=== PATIENT | female | born 1990 | race American Indian/Alaskan Native ===

== ENCOUNTER 2020-06-29 08:39 | Observation (INO) | payer OTHER ==
[2020-06-29 09:54] LABS: Hematocrit 32.5 % (30.3-42.9); Hemoglobin 10.3 gm/dl (10.1-14.3); Mean Corpuscular HGB Conc 32 % (30-34); Mean Corpuscular Volume 73 fl (79-97); Platelet Count 400 K/mm3 (140-440); Red Blood Count 4.48 M/mm3 (3.65-5.03); Red Cell Distribution Width 18.6 % (13.2-15.2)
[2020-06-29 10:15] LABS: Alanine Aminotransferase 8 units/L (7-56); BUN/Creatinine Ratio 9; Blood Urea Nitrogen 7 mg/dL (7-17); Calcium 9.3 mg/dL (8.4-10.2); Hemolysis Index 0
[2020-06-29 10:37] LABS: Bilirubin,Urine NEG (Negative); Blood,Urine SM (Negative); Color,Urine Yellow (Yellow); Mucus,Urine FEW /HPF; Protein,Urine <15 mg/dL mg/dL (Negative); Urobilinogen,Urine < 2.0 mg/dL (<2.0)
[2020-06-29 10:45] LABS: Amphetamine Screen,Urine Negative; Benzodiazepines Screen,Urine Negative; Cocaine Screen,Urine Negative; Methadone Screen,Urine Negative; Opiate Screen,Urine Negative
[2020-06-29 10:50] LABS: HCG Qualitative,Urine Negative (Negative)
--- NOTE | 2020-06-29 10:54 | XRay Report ---
CHEST PA AND LATERAL VIEWS INDICATION: Chest Pain. COMPARISON: None FINDINGS: Support devices: None Heart: Normal Lungs/Pleura: No acute pulmonary or pleural findings. IMPRESSION: 1. No active disease. Signer Name: Alvaro Marino MD Signed: 06/29/2020 10:50 AM Workstation Name: [id number]
--- NOTE | 2020-06-29 11:10 | Event Note ---
ED Screening Note Date of service: 06/29/20 Time: 11:08 ED Screening Note: 30-year-old female patient with history of oral contraceptive use presents to the emergency department with complaints of pleuritic right-sided chest pain starting 2 days ago. No recent travel. No recent surgery. No family history of venous thromboembolism. test is negative. No history of cancer. No known family history of early heart disease. Chest pain was preceded by the sensation of "a Rene horse" in both of her legs, which has since resolved spontaneously. BP 170/112 in triage General: Awake, appropriately interactive, no acute distress. Neck: Supple. Full range of motion intact. Cardiovascular: Normal peripheral perfusion. Pulmonary: No respiratory distress. Patient is speaking normally without use of accessory muscles. Skin: No apparent rashes or lesions. Neurological: No facial asymmetry. Speech is clear. Follows commands. Patient is alert and oriented. Musculoskeletal: Moves all four extremities spontaneously with normal range of motion. Psych: Cooperative. Appropriate mood and affect. Patient is not an appropriate candidate for PE rule-out using PERC criteria due to OCP's; D-Dimer obtained in triage. I have greeted and performed a focused rapid initial assessment of this patient. A comprehensive ED assessment and evaluation of the patient, analysis of all test results, and completion of the medical decision-making process will be conducted by additional ED providers. This initial assessment/diagnostic orders/clinical plan/treatment(s) is/are subject to change based on patients health status, clinical progression and re-assessment. Further treatment and workup at subsequent clinical provider's discretion. Patient/guardian urged not to elope from the ED as their condition may be serious if not clinically assessed and managed.
[2020-06-29 11:11] LABS: Cannabinoid Screen,Urine PRESUMPTIVE POSITIVE
[2020-06-29 11:14] LABS: Anisocytosis 1+; Platelet Estimate Consistent w Auto; Total Cells Counted 100
--- NOTE | 2020-06-29 12:06 | Emergency Department Report ---
ED Chest Pain HPI - General Chief Complaint: Chest Pain Stated Complaint: CHEST PAIN/SHARP PAIN RT SIDE Time Seen by Provider: 06/29/20 11:22 Source: patient Mode of arrival: Ambulatory Limitations: No Limitations - History of Present Illness Initial Comments: This is a 30-year-old female who complains of right-sided chest pain of 2 days duration. The onset was relatively acute and the pain has been pleuritic. She does complain of some difficulty in breathing and occasional cough but no hemoptysis. She states that she has had "charley horses in both feet" since yesterday. She does not complain of calf or thigh pain though. She states the pain began in her right posterior chest 2 days ago and seemed to involve more of the anterior part of her chest by yesterday. Patient does take the control pill. She does not have a personal history nor family history of VTE. She has not traveled since March when she took a 2-hour trip she states. MD Complaint: chest pain -: days(s) Onset: during rest Pain Location: right chest Pain Radiation: none Severity: moderate Quality: tightness Consistency: constant Improves With: nothing Worsens With: inspiration re: denies: nausea, vomting, diaphoresis Other Symptoms: denies: cough (Very occasional), fever, syncope Treatments Prior to Arrival: none Aspirin use within the Past 7 Days: (0) No - Related Data Allergies Allergy/AdvReac Type Severity Reaction Status Date / Time Penicillins Allergy Swelling Verified 06/29/20 08:48 Heart Score - HEART Score History: Slightly suspicious EKG: Normal Age: < 45 Risk factors: No known risk factors Troponin: < normal limit HEART Score: 0 - EKG Read Time Time EKG Completed: 09:01 EKG Read Time: 09:04 - Critical Actions Critical Actions: 0-3 pts:0.9-1.7%risk of adverse cardiac event.Candidate for discharge ED Review of Systems ROS: Stated complaint: CHEST PAIN/SHARP PAIN RT SIDE Other details as noted in HPI Constitutional: denies: chills, fever Eyes: denies: eye pain, eye discharge, vision change ENT: denies: ear pain, throat pain Respiratory: shortness of breath. denies: cough, wheezing Cardiovascular: chest pain. denies: palpitations Endocrine: no symptoms reported Gastrointestinal: denies: abdominal pain, nausea, diarrhea Genitourinary: denies: urgency, dysuria, discharge Musculoskeletal: denies: back pain, joint swelling, arthralgia Skin: denies: rash, lesions Neurological: denies: headache, weakness, paresthesias Psychiatric: denies: anxiety, depression Hematological/Lymphatic: denies: easy bleeding, easy bruising ED Past Medical Hx - Past Medical History Previous Medical History?: No - Surgical History Additional Surgical History: TONSIL - Social History Smoking Status: Never Smoker Substance Use Type: None ED Physical Exam - General Limitations: No Limitations General appearance: alert, in no apparent distress, other (Somewhat tachypneic) - Head Head exam: Present: atraumatic, normocephalic - Eye Eye exam: Present: normal appearance. Absent: scleral icterus - ENT ENT exam: Present: mucous membranes moist - Neck Neck exam: Present: normal inspection - Respiratory Respiratory exam: Present: normal lung sounds bilaterally. Absent: respiratory distress - Cardiovascular Cardiovascular Exam: Present: regular rate, normal rhythm. Absent: systolic murmur, diastolic murmur, rubs, gallop - GI/Abdominal GI/Abdominal exam: Present: soft, normal bowel sounds. Absent: distended, tenderness, guarding, rebound - Extremities Exam Extremities exam: Present: normal capillary refill, other (Mild dorsal edema of the foot right more noticeable than the left). Absent: tenderness, joint swell ing, calf tenderness - Back Exam Back exam: Present: normal inspection - Neurological Exam Neurological exam: Present: alert, oriented X3, CN II-XII intact. Absent: motor sensory deficit - Psychiatric Psychiatric exam: Present: normal affect, normal mood - Skin Skin exam: Present: warm, dry, intact, normal color. Absent: rash ED Course Vital Signs 06/29/20 06/29/20 06/29/20 08:51 12:30 12:46 Pulse Rate 96 H 94 H Respiratory 20 20 Rate Blood Pressure 170/112 193/127 O2 Sat by Pulse 96 100 99 Oximetry 06/29/20 06/29/20 06/29/20 12:54 13:00 13:16 Pulse Rate 96 H 92 H Respiratory 20 25 H 28 H Rate Blood Pressure 174/116 183/114 O2 Sat by Pulse 97 99 97 Oximetry 06/29/20 06/29/20 06/29/20 13:30 14:31 15:00 Pulse Rate 110 H 98 H 94 H Respiratory 33 H 25 H Rate Blood Pressure 175/113 175/113 174/109 O2 Sat by Pulse 97 98 Oximetry - Reevaluation(s) Reevaluation #1: Patient found to have a distal pulmonary embolism right lower lobe, appears to be multiple associated with pulmonary infarction. She was started on standard dose heparin. She was given labetalol for her accelerated hypertension. She is referred to Dr. Heaton who has seen her already and assumed further care. 06/29/20 15:29 PETR score - Petr Score Age > 65: (0) No Aspirin use within the Past 7 Days: (0) No 3 or more CAD Risk Factors: (0) No 2 or more Angina events in past 24 hrs: (0) No Known CAD with more than 50% Stenosis: (0) No Elevated Cardiac Markers: (0) No ST Deviation Greater than 0.5mm: (0) No PETR Score: 0 ED Medical Decision Making - Lab Data Result diagrams: 06/29/20 09:39 06/29/20 09:39 Laboratory Results - last 24 hr 06/29/20 06/29/20 06/29/20 09:39 09:39 09:40 WBC 10.0 RBC 4.48 Hgb 10.3 Hct 32.5 MCV 73 L MCH 23 L MCHC 32 RDW 18.6 H Plt Count 400 Add Manual Diff Complete Total Counted 100 Seg Neuts % (Manual) 79.0 H Lymphocytes % (Manual) 14.0 Monocytes % (Manual) 7.0 Nucleated RBC % Not Reportable Seg Neutrophils # Man 7.9 H Band Neutrophils # 0.0 Lymphocytes # (Manual) 1.4 Abs React Lymphs (Man) 0.0 Monocytes # (Manual) 0.7 Eosinophils # (Manual) 0.0 Basophils # (Manual) 0.0 Metamyelocytes # 0.0 Myelocytes # 0.0 Promyelocytes # 0.0 Blast Cells # 0.0 WBC Morphology Not Reportable Hypersegmented Neuts Not Reportable Hyposegmented Neuts Not Reportable Hypogranular Neuts Not Reportable Smudge Cells Not Reportable Toxic Granulation Not Reportable Toxic Vacuolation Not Reportable Dohle Bodies Not Reportable Pelger-Huet Anomaly Not Reportable [place] Rods Not Reportable Platelet Estimate Consistent w auto Clumped Platelets Not Reportable Plt Clumps, EDTA Not Reportable Large Platelets Not Reportable Giant Platelets Not Reportable Platelet Satelliting Not Reportable Plt Morphology Comment Not Reportable RBC Morphology Not Reportable Dimorphic RBCs Not Reportable Polychromasia Not Reportable Hypochromasia Not Reportable Poikilocytosis Not Reportable Anisocytosis 1+ Microcytosis Not Reportable Macrocytosis Not Reportable Spherocytes Not Reportable Pappenheimer Bodies Not Reportable Sickle Cells Not Reportable Target Cells Not Reportable Tear Drop Cells Not Reportable Ovalocytes Not Reportable Helmet Cells Not Reportable [place] Bodies Not Reportable Ellinger Rings Not Reportable [place] Cells Not Reportable Bite Cells Not Reportable Crenated Cell Not Reportable Elliptocytes Not Reportable Acanthocytes (Spur) Not Reportable Rouleaux Not Reportable Hemoglobin C Crystals Not Reportable Schistocytes Not Reportable Malaria parasites Not Reportable David Bodies Not Reportable Hem Pathologist Commnt No Sodium 139 Potassium 4.6 Chloride 104.1 Carbon Dioxide 26 Anion Gap 14 BUN 7 Creatinine 0.8 Estimated GFR > 60 BUN/Creatinine Ratio 9 Glucose 99 Calcium 9.3 Total Bilirubin < 0.20 AST 9 ALT 8 Alkaline Phosphatase 58 Troponin T < 0.010 Total Protein 7.0 Albumin 4.0 Albumin/Globulin Ratio 1.3 Lipase 30 HCG, Qual Negative Urine Color Urine Turbidity Urine pH Ur Specific [place] Urine Protein Urine Glucose (UA) Urine Ketones Urine Blood Urine Nitrite Urine Bilirubin Urine Urobilinogen Ur Leukocyte Esterase Urine WBC (Auto) Urine RBC (Auto) U Epithel Cells (Auto) Urine Mucus Urine HCG, Qual Urine Opiates Screen Urine Methadone Screen Ur Barbiturates Screen Ur Phencyclidine Scrn Ur Amphetamines Screen U Benzodiazepines Scrn Urine Cocaine Screen U Marijuana (THC) Screen Drugs of Abuse Note 06/29/20 06/29/20 Unknown Unknown WBC RBC Hgb Hct MCV MCH MCHC RDW Plt Count Add Manual Diff Total Counted Seg Neuts % (Manual) Lymphocytes % (Manual) Monocytes % (Manual) Nucleated RBC % Seg Neutrophils # Man Band Neutrophils # Lymphocytes # (Manual) Abs React Lymphs (Man) Monocytes # (Manual) Eosinophils # (Manual) Basophils # (Manual) Metamyelocytes # Myelocytes # Promyelocytes # Blast Cells # WBC Morphology Hypersegmented Neuts Hyposegmented Neuts Hypogranular Neuts Smudge Cells Toxic Granulation Toxic Vacuolation Dohle Bodies Pelger-Huet Anomaly [place] Rods Platelet Estimate Clumped Platelets Plt Clumps, EDTA Large Platelets Giant Platelets Platelet Satelliting Plt Morphology Comment RBC Morphology Dimorphic RBCs Polychromasia Hypochromasia Poikilocytosis Anisocytosis Microcytosis Macrocytosis Spherocytes Pappenheimer Bodies Sickle Cells Target Cells Tear Drop Cells Ovalocytes Helmet Cells [place] Bodies Ellinger Rings [place] Cells Bite Cells Crenated Cell Elliptocytes Acanthocytes (Spur) Rouleaux Hemoglobin C Crystals Schistocytes Malaria parasites David Bodies Hem Pathologist Commnt Sodium Potassium Chloride Carbon Dioxide Anion Gap BUN Creatinine Estimated GFR BUN/Creatinine Ratio Glucose Calcium Total Bilirubin AST ALT Alkaline Phosphatase Troponin T Total Protein Albumin Albumin/Globulin Ratio Lipase HCG, Qual Urine Color Yellow Urine Turbidity Hazy Urine pH 6.0 Ur Specific [place] 1.013 Urine Protein <15 mg/dl Urine Glucose (UA) Neg Urine Ketones Neg Urine Blood Sm Urine Nitrite Neg Urine Bilirubin Neg Urine Urobilinogen < 2.0 Ur Leukocyte Esterase Neg Urine WBC (Auto) 3.0 Urine RBC (Auto) 2.0 U Epithel Cells (Auto) 6.0 Urine Mucus Few Urine HCG, Qual Negative Urine Opiates Screen Negative Urine Methadone Screen Negative Ur Barbiturates Screen Negative Ur Phencyclidine Scrn Negative Ur Amphetamines Screen Negative U Benzodiazepines Scrn Negative Urine Cocaine Screen Negative U Marijuana (THC) Screen Presumptive positive Drugs of Abuse Note Disclamer - EKG Data -: EKG Interpreted by Me EKG shows normal: sinus rhythm, axis, intervals, QRS complexes, ST-T waves Rate: normal - EKG Data Interpretation: no acute changes - Radiology Data Radiology results: report reviewed, image reviewed IMPRESSION: 1. Positive examination for acute PTE in the right lower lobe. 2. Associated patchy parenchymal disease in the right lower lobe pos teromedially is characteristic of hemorrhagic edema or pulmonary infarct. No evidence of right ventricular strain. 3. Mild cardiomegaly. Critical care attestation.: If time is entered above; I have spent that time in minutes in the direct care of this critically ill patient, excluding procedure time. ED Disposition Clinical Impression: Pulmonary infarction, Accelerated hypertension Pulmonary embolism Qualifiers: Pulmonary embolism type: multiple subsegmental (without acute cor pulmonale) Qualified Code(s): I26.94 - Multiple subsegmental pulmonary emboli without acute cor pulmonale Disposition: OP ADMIT IP TO THIS HOSP Is pt being admited?: Yes Does the pt Need Aspirin: No Condition: Stable Instructions: Hypertension (ED) Referrals: PRIMARY CARE, [Primary Care Provider] - 3-5 Days Time of Disposition: 15:32
[2020-06-29] MEDS ORDERED: MORPHINE 2 MG/1 ML INJ IV ONE ×2 (12:20→14:40)
[2020-06-29] MEDS ORDERED: ONDANSETRON 4 MG/2 ML INJ IV ONE (12:20)
[2020-06-29 12:51] LABS: INR 1.02 (0.87-1.13); Partial Thromboplastin Time 26.7 Sec. (24.2-36.6)
[2020-06-29] MEDS ORDERED: HEPARIN 10,000 UNITS/10 ML VIAL IV ONE (14:25)
[2020-06-29] MEDS ORDERED: HEPARIN 10,000 UNITS/10 ML VIAL IV PRN (14:25)
--- NOTE | 2020-06-29 14:35 | Cat Scan Report ---
CTA CHEST WITH CONTRAST INDICATION / CLINICAL INFORMATION: Right pleuritic chest pain. TECHNIQUE: Axial CT images were obtained through the chest after injection of 100 cc Omnipaque 300 IV contrast. 3 plane MIP and/or 3D reconstructions were produced. All CT scans at this location are per formed using CT dose reduction for ALARA by means of automated exposure control. COMPARISON: None available. FINDINGS: PULMONARY ARTERIES: Good quality examination. Segmental and subsegmental filling expansile defects in the right lower lobe in the posterior and medial basilar segments. No other filling defects. The logan n pulmonary artery is normal in caliber. THORACIC AORTA: No significant abnormality. HEART: Mild cardiomegaly. Normal RV/LV ratio. CORONARY ARTERY CALCIFICATION: None. MEDIASTINUM / IVETTE: No significant abnormality. PLEURA: No pleural effusion. No pneumothorax. LUNGS: Patchy consolidation and groundglass opacity in the right lung base posteromedially. Mild left basilar subsegmental atelectasis. ADDITIONAL FINDINGS: None. UPPER ABDOMEN: Tiny accessory spleen. No acute abnormality. SKELETAL STRUCTURES: No significant osseous abnormality. IMPRESSION: 1. Positive examination for acute PTE in the right lower lobe. 2. Associated patchy parenchymal disease in the right lower lobe posteromedially is characteristic of hemorrhagic edema or pulmonary infarct. No evidence of right ventricular strain. 3. Mild cardiomegaly. CRITICAL RESULT Time of Discovery (ORACLE DATABASE DEVELOPER/CDT): 1:20 PM Time of Communication (ORACLE DATABASE DEVELOPER/CDT): 1:21 PM Licensed Practitioner Receiving Report: Dr. Banerjee Read-Back Performed: Not applicable. Signer Name: Mitchell Santiago MD Signed: 06/29/2020 2:31 PM Workstation Name: [id number]
[2020-06-29] MEDS ORDERED: hydrALAZINE 20 MG/1 ML INJ IV PRN ×2 (15:08→21:12)
[2020-06-29] MEDS: HYDROmorphone 1 MG/1 ML INJ IV PRN ×3 (15:27→22:32)
[2020-06-29] MEDS: HEPARIN/ 0.45% NACL DRIP 25,000 UNIT/500 ML BAG IV SCH (15:46)
[2020-06-29 18:04] LABS: Hematocrit 31.5 % (30.3-42.9); Hemoglobin 10.7 gm/dl (10.1-14.3)
[2020-06-29 18:14] LABS: INR 1.16 (0.87-1.13)
[2020-06-29 18:20] LABS: Partial Thromboplastin Time 183.3 Sec. (24.2-36.6)
--- NOTE | 2020-06-29 19:22 | History and Physical Report ---
History of Present Illness Date of examination: 06/29/20 Date of admission: 06/29/20 14:58 Chief complaint: Chest pain and shortness of breath for 2 days History of present illness: 31-year-old -[place] female with history of hypertension comes in for right-sided chest pain of 2 days duration. Also associated with shortness of breath and occasional cough but no hemoptysis. Patient has spasm in both feet since yesterday. No cough pain or thigh pain. Pain is in the right posterior chest since 2 days and pain is about 8 on a scale of 1-10. More on deep breathing. 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 No fever or chills. No exposure to coronavirus. - Past Medical History --Hypertension - Surgical History --Tonsillectomy - Social History Smoking Status: Never Smoker Substance Use Type: None -Family history --Htn Review of Systems ROS: Stated complaint: CHEST PAIN/SHARP PAIN RT SIDE Other details as noted in HPI Constitutional: denies: chills, fever Eyes: denies: eye pain, eye discharge, vision change ENT: denies: ear pain, throat pain Respiratory: shortness of breath present Cardiovascular: chest pain. Especially with deep respirations Endocrine: no symptoms reported Gastrointestinal: denies: abdominal pain, nausea, diarrhea Genitourinary: denies: urgency, dysuria, discharge Musculoskeletal: denies: back pain, joint swelling, arthralgia Skin: denies: rash, lesions Neurological: denies: headache, weakness, paresthesias Psychiatric: denies: anxiety, depression Hematological/Lymphatic: denies: easy bleeding, easy bruising Medications and Allergies Allergies Allergy/AdvReac Type Severity Reaction Status Date / Time Penicillins Allergy Swelling Verified 06/29/20 08:48 Active Meds: Active Medications Heparin Sodium (Porcine) (Heparin 10,000 Units/10 Ml Vial) 4,100 unit 40 unit/kg (4100 unit) IV Q6H PRN PRN Reason: Anti-Xa Assay < 0.1 units/ml Hydralazine HCl (Hydralazine 20 Mg/1 Ml Inj) 10 mg IV Q3H PRN PRN Reason: Hypertension Last Admin: 06/29/20 16:23 Dose: 10 mg Documented by: Hydromorphone HCl (Hydromorphone 1 Mg/1 Ml Inj) 0.5 mg IV Q3H PRN PRN Reason: Pain , Severe (7-10) Last Admin: 06/29/20 15:27 Dose: 0.5 mg Documented by: Heparin Sodium/Sodium Chloride (Heparin/ 0.45% Nacl-25,000 Unit/500 Ml) 25,000 unit in 500 mls @ 30 mls/hr IV TITR ELDER; Protocol Last Admin: 06/29/20 15:46 Dose: 1,500 units/hr, 30 mls/hr Documented by: Exam - Constitutional Vitals: Temp Pulse Resp BP Pulse Ox 94 H 28 H 170/110 98 06/29/20 16:23 06/29/20 15:46 06/29/20 16:23 06/29/20 15:46 General appearance: Present: mild distress, well-nourished - EENT Eyes: Present: PERRL ENT: hearing intact, clear oral mucosa - Neck Neck: Present: supple, normal ROM - Respiratory Respiratory effort: normal Respiratory: bilateral: CTA - Cardiovascular Heart rate: 98 Rhythm: regular Heart Sounds: Present: S1 & S2. Absent: rub, click - Extremities Extremities: pulses symmetrical, No edema Peripheral Pulses: within normal limits - Abdominal General gastrointestinal: Present: soft, non-tender, non-distended, normal bowel sounds Female genitourinary: Present: normal - Integumentary Integumentary: Present: clear, warm, dry - Musculoskeletal Musculoskeletal: gait normal, strength equal bilaterally - Psychiatric Psychiatric: appropriate mood/affect, intact judgment & insight - Neurologic Neurologic: CNII-XII intact, moves all extremities - Allied Health Allied health notes reviewed: nursing, case management HEART Score - HEART Score History: Slightly suspicious EKG: Normal Age: < 45 Risk factors: 1-2 risk factors Troponin: Troponin T < 0.010 ng/mL (0.00-0.029) 06/29/20 11:55 Troponin: < normal limit HEART Score: 1 - Critical Actions Critical Actions: 0-3 pts:0.9-1.7%risk of adverse cardiac event.Candidate for discharge Results - Labs CBC & Chem 7: 06/29/20 17:47 06/29/20 09:39 Labs: Laboratory Last Values WBC 10.0 K/mm3 (4.5-11.0) 06/29/20 09:39 RBC 4.48 M/mm3 (3.65-5.03) 06/29/20 09:39 Hgb 10.7 gm/dl (10.1-14.3) 06/29/20 17:47 Hct 31.5 % (30.3-42.9) 06/29/20 17:47 MCV 73 fl (79-97) L 06/29/20 09:39 MCH 23 pg (28-32) L 06/29/20 09:39 MCHC 32 % (30-34) 06/29/20 09:39 RDW 18.6 % (13.2-15.2) H 06/29/20 09:39 Plt Count 393 K/mm3 (140-440) 06/29/20 17:47 Add Manual Diff Complete 06/29/20 09:39 Total Counted 100 06/29/20 09:39 Seg Neuts % (Manual) 79.0 % (40.0-70.0) H 06/29/20 09:39 Lymphocytes % (Manual) 14.0 % (13.4-35.0) 06/29/20 09:39 Monocytes % (Manual) 7.0 % (0.0-7.3) 06/29/20 09:39 Nucleated RBC % Not Reportable 06/29/20 09:39 Seg Neutrophils # Man 7.9 K/mm3 (1.8-7.7) H 06/29/20 09:39 Band Neutrophils # 0.0 K/mm3 06/29/20 09:39 Lymphocytes # (Manual) 1.4 K/mm3 (1.2-5.4) 06/29/20 09:39 Abs React Lymphs (Man) 0.0 K/mm3 06/29/20 09:39 Monocytes # (Manual) 0.7 K/mm3 (0.0-0.8) 06/29/20 09:39 Eosinophils # (Manual) 0.0 K/mm3 (0.0-0.4) 06/29/20 09:39 Basophils # (Manual) 0.0 K/mm3 (0.0-0.1) 06/29/20 09:39 Metamyelocytes # 0.0 K/mm3 06/29/20 09:39 Myelocytes # 0.0 K/mm3 06/29/20 09:39 Promyelocytes # 0.0 K/mm3 06/29/20 09:39 Blast Cells # 0.0 K/mm3 06/29/20 09:39 WBC Morphology Not Reportable 06/29/20 09:39 Hypersegmented Neuts Not Reportable 06/29/20 09:39 Hyposegmented Neuts Not Reportable 06/29/20 09:39 Hypogranular Neuts Not Reportable 06/29/20 09:39 Smudge Cells Not Reportable 06/29/20 09:39 Toxic Granulation Not Reportable 06/29/20 09:39 Toxic Vacuolation Not Reportable 06/29/20 09:39 Dohle Bodies Not Reportable 06/29/20 09:39 Pelger-Huet Anomaly Not Reportable 06/29/20 09:39 Lubna Rods Not Reportable 06/29/20 09:39 Platelet Estimate Consistent w auto 06/29/20 09:39 Clumped Platelets Not Reportable 06/29/20 09:39 Plt Clumps, EDTA Not Reportable 06/29/20 09:39 Large Platelets Not Reportable 06/29/20 09:39 Giant Platelets Not Reportable 06/29/20 09:39 Platelet Satelliting Not Reportable 06/29/20 09:39 Plt Morphology Comment Not Reportable 06/29/20 09:39 RBC Morphology Not Reportable 06/29/20 09:39 Dimorphic RBCs Not Reportable 06/29/20 09:39 Polychromasia Not Reportable 06/29/20 09:39 Hypochromasia Not Reportable 06/29/20 09:39 Poikilocytosis Not Reportable 06/29/20 09:39 Anisocytosis 1+ 06/29/20 09:39 Microcytosis Not Reportable 06/29/20 09:39 Macrocytosis Not Reportable 06/29/20 09:39 Spherocytes Not Reportable 06/29/20 09:39 Pappenheimer Bodies Not Reportable 06/29/20 09:39 Sickle Cells Not Reportable 06/29/20 09:39 Target Cells Not Reportable 06/29/20 09:39 Tear Drop Cells Not Reportable 06/29/20 09:39 Ovalocytes Not Reportable 06/29/20 09:39 Helmet Cells Not Reportable 06/29/20 09:39 [place] Bodies Not Reportable 06/29/20 09:39 [place] Rings Not Reportable 06/29/20 09:39 [place] Cells Not Reportable 06/29/20 09:39 Bite Cells Not Reportable 06/29/20 09:39 Crenated Cell Not Reportable 06/29/20 09:39 Elliptocytes Not Reportable 06/29/20 09:39 Acanthocytes (Spur) Not Reportable 06/29/20 09:39 Rouleaux Not Reportable 06/29/20 09:39 Hemoglobin C Crystals Not Reportable 06/29/20 09:39 Schistocytes Not Reportable 06/29/20 09:39 Malaria parasites Not Reportable 06/29/20 09:39 David Bodies Not Reportable 06/29/20 09:39 Hem Pathologist Commnt No 06/29/20 09:39 PT 14.6 Sec. (12.2-14.9) 06/29/20 17:47 INR 1.16 (0.87-1.13) H 06/29/20 17:47 APTT 183.3 Sec. (24.2-36.6) H* 06/29/20 17:47 D-Dimer 1072.36 ng/mlDDU (0-234) H 06/29/20 11:55 Sodium 139 mmol/L (137-145) 06/29/20 09:39 Potassium 4.6 mmol/L (3.6-5.0) 06/29/20 09:39 Chloride 104.1 mmol/L (98-107) 06/29/20 09:39 Carbon Dioxide 26 mmol/L (22-30) 06/29/20 09:39 Anion Gap 14 mmol/L 06/29/20 09:39 BUN 7 mg/dL (7-17) 06/29/20 09:39 Creatinine 0.8 mg/dL (0.6-1.2) 06/29/20 09:39 Estimated GFR > 60 ml/min 06/29/20 09:39 BUN/Creatinine Ratio 9 % 06/29/20 09:39 Glucose 99 mg/dL (65-100) 06/29/20 09:39 Calcium 9.3 mg/dL (8.4-10.2) 06/29/20 09:39 Total Bilirubin < 0.20 mg/dL (0.1-1.2) 06/29/20 09:39 AST 9 units/L (5-40) 06/29/20 09:39 ALT 8 units/L (7-56) 06/29/20 09:39 Alkaline Phosphatase 58 units/L (35-129) 06/29/20 09:39 Troponin T < 0.010 ng/mL (0.00-0.029) 06/29/20 11:55 Total Protein 7.0 g/dL (6.3-8.2) 06/29/20 09:39 Albumin 4.0 g/dL (3.9-5) 06/29/20 09:39 Albumin/Globulin Ratio 1.3 % 06/29/20 09:39 Lipase 30 units/L (13-60) 06/29/20 09:39 HCG, Qual Negative (Negative) 06/29/20 09:40 Urine Color Yellow (Yellow) 06/29/20 Unknown Urine Turbidity Hazy (Clear) 06/29/20 Unknown Urine pH 6.0 (5.0-7.0) 06/29/20 Unknown Ur Specific [place] 1.013 (1.003-1.030) 06/29/20 Unknown Urine Protein <15 mg/dl mg/dL (Negative) 06/29/20 Unknown Urine Glucose (UA) Neg mg/dL (Negative) 06/29/20 Unknown Urine Ketones Neg mg/dL (Negative) 06/29/20 Unknown Urine Blood Sm (Negative) 06/29/20 Unknown Urine Nitrite Neg (Negative) 06/29/20 Unknown Urine Bilirubin Neg (Negative) 06/29/20 Unknown Urine Urobilinogen < 2.0 mg/dL (<2.0) 06/29/20 Unknown Ur Leukocyte Esterase Neg (Negative) 06/29/20 Unknown Urine WBC (Auto) 3.0 /HPF (0.0-6.0) 06/29/20 Unknown Urine RBC (Auto) 2.0 /HPF (0.0-6.0) 06/29/20 Unknown U Epithel Cells (Auto) 6.0 /HPF (0-13.0) 06/29/20 Unknown Urine Mucus Few /HPF 06/29/20 Unknown Urine HCG, Qual Negative (Negative) 06/29/20 Unknown Urine Opiates Screen Negative 06/29/20 Unknown Urine Methadone Screen Negative 06/29/20 Unknown Ur Barbiturates Screen Negative 06/29/20 Unknown Ur Phencyclidine Scrn Negative 06/29/20 Unknown Ur Amphetamines Screen Negative 06/29/20 Unknown U Benzodiazepines Scrn Negative 06/29/20 Unknown Urine Cocaine Screen Negative 06/29/20 Unknown U Marijuana (THC) Screen Presumptive positive 06/29/20 Unknown Drugs of Abuse Note Disclamer 06/29/20 Unknown Short CBC 06/29/20 06/29/20 Range/Units 09:39 17:47 WBC 10.0 (4.5-11.0) K/mm3 Hgb 10.3 10.7 (10.1-14.3) gm/dl Hct 32.5 31.5 (30.3-42.9) % Plt Count 400 393 (140-440) K/mm3 BMP 06/29/20 09:39 Sodium 139 Potassium 4.6 Chloride 104.1 Carbon Dioxide 26 BUN 7 Creatinine 0.8 Glucose 99 Calcium 9.3 Cardiac Enzymes 06/29/20 06/29/20 Range/Units 09:39 11:55 Troponin T < 0.010 < 0.010 (0.00-0.029) ng/mL Liver Function 06/29/20 Range/Units 09:39 Total Bilirubin < 0.20 (0.1-1.2) mg/dL AST 9 (5-40) units/L ALT 8 (7-56) units/L Alkaline Phosphatase 58 (35-129) units/L Albumin 4.0 (3.9-5) g/dL Urine 06/29/20 Range/Units Unknown Urine Color Yellow (Yellow) Urine pH 6.0 (5.0-7.0) Ur Specific [place] 1.013 (1.003-1.030) Urine Protein <15 mg/dl (Negative) mg/dL Urine Glucose (UA) Neg (Negative) mg/dL - Imaging and Cardiology EKG: report reviewed Chest x-ray: report reviewed CT scan - chest: report reviewed Imaging and Cardiology: Chest x-ray No acute finding CTA chest Positive examination for acute pulmonary embolism in the right lower lobe Associated patchy parenchymal disease in the right lower lobe posterior medially is characteristic of hemorrhagic edema or pulmonary infarct No evidence of ventricular strain Mild cardiomegaly Assessment and Plan Advance Directives: Yes (Full code) VTE prophylaxis?: Chemical Plan of care discussed with patient/family: Yes - Patient Problems (1) Acute pulmonary embolism Current Visit: Yes Status: Acute Qualifiers: Acute cor pulmonale presence: without acute cor pulmonale Plan to address problem: No right ventricular strain Patient initiated on IV heparin May be switched to Eliquis tomorrow Lower extremity venous duplex scan also requested Patient does not need EKOS Admit to telemetry (2) Pulmonary infarction Current Visit: Yes Status: Acute Plan to address problem: Symptomatic treatment Pulmonary infarction secondary to pulmonary embolism (3) Hypertensive emergency Current Visit: Yes Status: Acute Plan to address problem: Patient initiated on valsartan 1 6212 and amlodipine 10 mg every 24 hours. IV hydralazine 10 mg every 3 hours as needed (4) Tetrahydrocannabinol (THC) dependence Current Visit: Yes Status: Acute Plan to address problem: Patient to be counseled Patient to be counseled by primary team (5) DVT prophylaxis Current Visit: Yes Status: Acute Plan to address problem: Patient on heparin and GI prophylaxis
[2020-06-29] MEDS ORDERED: ONDANSETRON 4 MG/2 ML INJ IV PRN (21:09)
[2020-06-29] MEDS ORDERED: METOCLOPRAMIDE 10 MG/2 ML INJ IV PRN (21:09)
[2020-06-29] MEDS ORDERED: ACETAMINOPHEN 325 MG TAB PO PRN (21:09)
[2020-06-29] MEDS ORDERED: MORPHINE 2 MG/1 ML INJ IV PRN (21:09)
[2020-06-29] MEDS ORDERED: oxyCODONE /ACETAMINOPHEN 5-325MG TAB PO PRN (21:09)
[2020-06-29] MEDS ORDERED: SODIUM CHLORIDE 0.9% 1000 ML 1,000 ML IV SCH (21:15)
[2020-06-29] MEDS: FAMOTIDINE 20 MG/2 ML INJ IV SCH (22:31)
[2020-06-29] MEDS: VALSARTAN 160MG TAB PO SCH (22:31)
[2020-06-29] MEDS: amLODIPine 10 MG TAB PO SCH (22:31)
[2020-06-29] MEDS ORDERED: FAMOTIDINE 20 MG/2 ML INJ IV SCH (23:00)
[2020-06-30] MEDS: HYDROmorphone 1 MG/1 ML INJ IV PRN ×2 (01:14→08:18)
[2020-06-30 05:27] LABS: Basophils # (Auto) 0.1 K/mm3 (0.0-0.1); Basophils % (Auto) 0.5 % (0.0-1.8); Eosinophils % (Auto) 0.2 % (0.0-4.3); Hematocrit 31.3 % (30.3-42.9); Hemoglobin 10.2 gm/dl (10.1-14.3); Lymphocytes # (Auto) 2.4 K/mm3 (1.2-5.4); Lymphocytes % (Auto) 20.9 % (13.4-35.0); Mean Corpuscular HGB Conc 33 % (30-34); Mean Corpuscular Volume 72 fl (79-97); Monocytes % (Auto) 8.5 % (0.0-7.3); Platelet Count 388 K/mm3 (140-440); Red Blood Count 4.34 M/mm3 (3.65-5.03); Red Cell Distribution Width 18.9 % (13.2-15.2)
[2020-06-30 05:36] LABS: INR 1.13 (0.87-1.13)
[2020-06-30 05:38] LABS: Partial Thromboplastin Time 53.5 Sec. (24.2-36.6)
[2020-06-30 05:41] LABS: Alanine Aminotransferase 7 units/L (7-56); Albumin 3.8 g/dL (3.9-5); Blood Urea Nitrogen 6 mg/dL (7-17); Calcium 8.7 mg/dL (8.4-10.2); Hemolysis Index 7
[2020-06-30 05:42] LABS: BUN/Creatinine Ratio 10
[2020-06-30] MEDS: amLODIPine 10 MG TAB PO SCH (10:05)
[2020-06-30] MEDS: FAMOTIDINE 20 MG/2 ML INJ IV SCH (10:05)
[2020-06-30] MEDS: VALSARTAN 160MG TAB PO SCH (10:06)
[2020-06-30] MEDS: HEPARIN/ 0.45% NACL DRIP 25,000 UNIT/500 ML BAG IV SCH ×2 (11:16→12:03)
--- NOTE | 2020-06-30 11:26 | Electrocardiograph Report ---
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
--- NOTE | 2020-06-30 14:40 | Discharge Summary ---
Providers - Providers Date of Admission: 06/29/20 14:58 Date of discharge: 06/30/20 Attending physician: KORTNEY GENAO MD Primary care physician: [employer] COMMISSIONER Hospitalization Reason for admission: Acute chest pain Hospital course: 31-year-old -[place] female with history of hypertension comes in for right-sided chest pain of 2 days duration. Also associated with shortness of breath and occasional cough but no hemoptysis. Patient has spasm in both feet since yesterday. No cough pain or thigh pain. Pain is in the right posterior chest since 2 days and pain is about 8 on a scale of 1-10. More on deep breathing. 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 No fever or chills. No exposure to coronavirus. CT of chest showing right lower lobe PE, started on heparin gtt and transitioned to Eliquis. (1) Acute pulmonary embolism Current Visit: Yes Status: Acute Qualifiers: Acute cor pulmonale presence: without acute cor pulmonale Plan to address problem: No right ventricular strain DC heparin, start eliquis Lower extremity venous duplex scan pending (2) Pulmonary infarction Current Visit: Yes Status: Acute Plan to address problem: Symptomatic treatment Pulmonary infarction secondary to pulmonary embolism (3) Hypertensive emergency Current Visit: Yes Status: Acute Plan to address problem: Patient initiated on valsartan and amlodipine IV hydralazine 10 mg every 3 hours as needed (4) Tetrahydrocannabinol (THC) dependence Current Visit: Yes Status: Acute Plan to address problem: Patient to be counseled Disposition: DC-01 TO HOME OR SELFCARE Final Discharge Diagnosis (Prints w/discharge instructions): (1) Acute pulmonary embolism. (2) Pulmonary infarction. (3) Hypertensive emergency. (4) Tetrahydrocannabinol (THC) dependence Time spent for discharge: > 35 min Core Measure Documentation - Palliative Care Palliative Care/ Comfort Measures: Not Applicable - Core Measures Any of the following diagnoses?: DVT/PE - VTE Discharge Requirements Deep Vein Thrombosis/Pulmonary Embolism Present on Admission: Yes Has pt received <5 days of overlap therapy or INR<2.0: Yes Anticoagulant overlap therapy prescribed at discharge: Yes Exam - Constitutional Vitals: Temp Pulse Resp BP Pulse Ox 99.6 F 107 H 18 130/84 98 06/30/20 07:37 06/30/20 10:06 06/30/20 07:37 06/30/20 10:06 06/30/20 08:49 General appearance: Present: no acute distress, well-nourished - EENT Eyes: Present: PERRL ENT: hearing intact, clear oral mucosa - Neck Neck: Present: supple, normal ROM - Respiratory Respiratory effort: normal Respiratory: bilateral: CTA - Cardiovascular Heart Sounds: Present: S1 & S2. Absent: rub, click - Extremities Extremities: pulses symmetrical, No edema Peripheral Pulses: within normal limits - Abdominal General gastrointestinal: Present: soft, non-tender, non-distended, normal bowel sounds Female genitourinary: Present: normal - Integumentary Integumentary: Present: clear, warm, dry - Musculoskeletal Musculoskeletal: gait normal, strength equal bilaterally - Psychiatric Psychiatric: appropriate mood/affect, intact judgment & insight - Neurologic Neurologic: CNII-XII intact, moves all extremities Plan Activity: no restrictions Weight Bearing Status: Full Weight Bearing Diet: regular Follow up with: PRIMARY CARE,MD [Primary Care Provider] - 3-5 Days Prescriptions: RX: amLODIPine 10 mg PO QDAY 30 Days #30 tablet RX: Valsartan [Diovan] 160 mg PO Q12HR 30 Days #60 tablet RX: Apixaban [Eliquis] 10 mg PO Q12HR 7 Days #13 tablet RX: Apixaban [Eliquis] 5 mg PO Q12HR 21 Days #42 tablet
[2020-06-30 14:59] VITALS: BP 113/75
[2020-06-30] MEDS ORDERED: APIXABAN 5 MG TAB PO SCH (15:00)
--- NOTE | 2020-06-30 16:30 | Vascular Lab Report ---
DUPLEX DOPPLER LOWER EXTREMITY VEINS, BILATERAL INDICATION / CLINICAL INFORMATION: Pulmonary embolism. TECHNIQUE: Duplex doppler imaging was performed through the veins of both lower extremities using venous boy kathy and other maneuvers. COMPARISON: None available. FINDINGS: RIGHT COMMON FEMORAL VEIN: Negative. RIGHT FEMORAL VEIN: Negative. RIGHT POPLITEAL VEIN: Negative. RIGHT CALF VEINS: Negative. LEFT COMMON FEMORAL VEIN: Negative. LEFT FEMORAL VEIN: Negative. LEFT POPLITEAL VEIN: Negative. LEFT CALF VEINS: Negative. ADDITIONAL FINDINGS: None. IMPRESSION: 1. No sonographic evidence for DVT in either lower extremity. Signer Name: Juarez Tang MD Signed: 06/30/2020 4:26 PM Workstation Name: [id number]
[2020-07-08] MEDS ORDERED: APIXABAN 5 MG TAB PO SCH (08:00)
== END 2020-06-30 17:40 | disposition home or self-care (01) ==
LOC: ED 08:39 → 4A 14:58
PROVIDERS: ADMIT Internal Medicine; ATTEND Family Medicine
DX: I26.99 Other pulmonary embolism without acute cor pulmonale (principal); I16.0 Hypertensive urgency; R07.89 Other chest pain; F12.20 Cannabis dependence, uncomplicated; Z90.49 Acquired absence of other specified parts of digestive tract; Z79.899 Other long term (current) drug therapy
CPT/HCPCS: 36415; 71046; 71275; 80053; 80307; 81001; 81025; 83036; 83690; 84484; 84703; 85007; 85014; 85018; 85025; 85049; 85379; 85520; 85610; 85730; 93005; 93970; 96365; 96366; 96375; 96376; 99285; G0378; J0360; J1170; J1644; J2270; J2405; J7030; Q9967

== ENCOUNTER 2020-07-02 19:47 | Emergency (ER) | payer SELFPAY ==
--- NOTE | 2020-07-02 19:59 | Event Note ---
ED Screening Note Date of service: 07/02/20 Time: 19:58 ED Screening Note: 30-year-old female patient presents to the emergency department complaints of progressively worsening chest pain and shortness of breath. Patient was hospitalized last week for pulmonary embolism. She was discharged home on Eliquis. States she has been compliant with her anticoagulation. Tachycardic in triage. General: Awake, appropriately interactive, no acute distress. Neck: Supple. Full range of motion intact. Cardiovascular: Tachycardic. Normal peripheral perfusion. Pulmonary: No respiratory distress. Patient is speaking normally without use of accessory muscles. Skin: No apparent rashes or lesions. Neurological: No facial asymmetry. Speech is clear. Follows commands. Patient is alert and oriented. Musculoskeletal: Moves all four extremities spontaneously with normal range of motion. Psych: Cooperative. Appropriate mood and affect. I have greeted and performed a focused rapid initial assessment of this patient. A comprehensive ED assessment and evaluation of the patient, analysis of all t est results, and completion of the medical decision-making process will be conducted by additional ED providers. This initial assessment/diagnostic orders/clinical plan/treatment(s) is/are subject to change based on patients health status, clinical progression and re-assessment. Further treatment and workup at subsequent clinical provider's discretion. Patient/guardian urged not to elope from the ED as their condition may be serious if not clinically assessed and managed.
[2020-07-02 20:19] LABS: Basophils # (Auto) 0.1 K/mm3 (0.0-0.1); Basophils % (Auto) 0.9 % (0.0-1.8); Eosinophils # (Auto) 0.1 K/mm3 (0.0-0.4); Eosinophils % (Auto) 1.3 % (0.0-4.3); Hematocrit 31.8 % (30.3-42.9); Hemoglobin 10.6 gm/dl (10.1-14.3); Lymphocytes # (Auto) 1.7 K/mm3 (1.2-5.4); Lymphocytes % (Auto) 19.9 % (13.4-35.0); Mean Corpuscular HGB Conc 33 % (30-34); Mean Corpuscular Volume 72 fl (79-97); Monocytes # (Auto) 0.6 K/mm3 (0.0-0.8); Monocytes % (Auto) 7.3 % (0.0-7.3); Platelet Count 447 K/mm3 (140-440); Red Blood Count 4.41 M/mm3 (3.65-5.03); Red Cell Distribution Width 18.5 % (13.2-15.2)
--- NOTE | 2020-07-02 20:22 | XRay Report ---
CHEST 2 VIEWS 2007 INDICATION / CLINICAL INFORMATION: chest pain/SOB; known PE COMPARISON: 06/29/2020 FINDINGS: SUPPORT DEVICES: None. HEART / MEDIASTINUM: No significant abnormality. LUNGS / PLEURA: Mildly increasing right lower lobe atelectasis and possible pneumonitis are seen. Thi s is in the area of known recent PTE however and may just relate to that process. Left lung field is clear. No pneumothorax. ADDITIONAL FINDINGS: No significant additional findings. Signer Name: Armaan Gibson MD Signed: 07/02/2020 8:18 PM Workstation Name: [id number]
[2020-07-02 20:31] LABS: INR 1.33 (0.87-1.13); Partial Thromboplastin Time 35.9 Sec. (24.2-36.6)
[2020-07-02 20:38] LABS: Alanine Aminotransferase 8 units/L (7-56); Albumin 4.2 g/dL (3.9-5); Blood Urea Nitrogen 11 mg/dL (7-17); Calcium 9.3 mg/dL (8.4-10.2); Hemolysis Index 0
[2020-07-02 20:40] LABS: BUN/Creatinine Ratio 16
[2020-07-02] MEDS ORDERED: HYDROcodone/ACETAMINOPHEN 7.5-325MG TAB PO ONE (21:34)
--- NOTE | 2020-07-02 21:35 | Emergency Department Report ---
ED Chest Pain HPI - General Chief Complaint: Chest Pain Stated Complaint: CHEST PAIN;BLOOD CLOT IN LUNGS Time Seen by Provider: 07/02/20 21:19 Source: patient Mode of arrival: Ambulatory Limitations: No Limitations - History of Present Illness Initial Comments: 30-year-old female presents to ED with chest pain x5 days. Patient presented to this facility 3 days ago and was diagnosed with a PE. Patient was placed on Eliquis and blood pressure meds and discharged 2 days ago. Patient states she has been compliant with her amlodipine, valsartan, and Eliquis. However, patient states she was not given any prescriptions for pain medication. Patient states her pain is located in the right side and it is sharp in nature. Patient states this pain feels the same and is in the same location that it was when it began 5 days ago. Patient reports she had Doppler ultrasound of the lower extremities while hospitalized which were negative. Cause of PE thought to be due to her control. MD Complaint: chest pain -: days(s) (5) Onset: during exertion Pain Location: right chest Pain Radiation: none Severity: moderate Severity scale (0 -10): 8 Quality: sharp Consistency: constant Improves With: nothing Worsens With: inspiration re: dyspnea. denies: nausea, vomting, diaphoresis Other Symptoms: denies: cough, fever, leg swelling - Related Data Previous Rx's Medication Instructions Recorded Last Taken Type Apixaban [Eliquis] 5 mg PO Q12HR 21 Days #42 tablet 06/30/20 Unknown Rx Apixaban [Eliquis] 10 mg PO Q12HR 7 Days #13 tablet 06/30/20 Unknown Rx Valsartan [Diovan] 160 mg PO Q12HR 30 Days #60 tablet 06/30/20 Unknown Rx amLODIPine 10 mg PO QDAY 30 Days #30 tablet 06/30/20 Unknown Rx HYDROcodone/APAP 5-325 [[place] 1 each PO Q6HR PRN #10 tablet 07/02/20 Unknown Rx 5/325] Allergies Allergy/AdvReac Type Severity Reaction Status Date / Time Penicillins Allergy Swelling Verified 06/29/20 08:48 Heart Score - HEART Score History: Slightly suspicious EKG: Normal Age: < 45 Risk factors: 1-2 risk factors Troponin: < normal limit HEART Score: 1 - EKG Read Time Time EKG Completed: 20:14 EKG Read Time: 20:18 ED Review of Systems ROS: Stated complaint: CHEST PAIN;BLOOD CLOT IN LUNGS Other details as noted in HPI ED Past Medical Hx - Past Medical History Previous Medical History?: Yes Hx Congestive Heart Failure: No Hx Diabetes: No Hx Asthma: No Hx COPD: No Additional medical history: Recently diagnosed with blood clot started Eliquis - Surgical History Past Surgical History?: No Additional Surgical History: TONSIL - Social History Smoking Status: Never Smoker Substance Use Type: None - Medications Home Medications: Home Medications Medication Instructions Recorded Confirmed Last Taken Type Apixaban [Eliquis] 5 mg PO Q12HR 21 Days #42 tablet 06/30/20 Unknown Rx Apixaban [Eliquis] 10 mg PO Q12HR 7 Days #13 tablet 06/30/20 Unknown Rx Valsartan [Diovan] 160 mg PO Q12HR 30 Days #60 tablet 06/30/20 Unknown Rx amLODIPine 10 mg PO QDAY 30 Days #30 tablet 06/30/20 Unknown Rx HYDROcodone/APAP 5-325 [[place] 1 each PO Q6HR PRN #10 tablet 07/02/20 Unknown Rx 5/325] ED Physical Exam - General Limitations: No Limitations ED Course Vital Signs 07/02/20 07/02/20 07/02/20 19:51 21:25 21:30 Temperature 98.3 F Pulse Rate 107 H 104 H Respiratory 18 26 H 32 H Rate Blood Pressure 135/92 138/88 O2 Sat by Pulse 96 98 Oximetry 07/02/20 07/02/20 07/02/20 21:46 22:00 22:16 Temperature Pulse Rate 94 H 102 H 91 H Respiratory 15 24 16 Rate Blood Pressure 128/78 128/78 124/81 O2 Sat by Pulse 99 99 98 Oximetry - Reevaluation(s) Reevaluation #1: 07/02/20 22:14 Patient given [place] 10. She is currently reporting pain of 3/10, down from 10/10 PETR score - Petr Score Age > 65: (0) No Aspirin use within the Past 7 Days: (0) No 3 or more CAD Risk Factors: (0) No 2 or more Angina events in past 24 hrs: (0) No Known CAD with more than 50% Stenosis: (0) No Elevated Cardiac Markers: (0) No ST Deviation Greater than 0.5mm: (0) No PETR Score: 0 ED Medical Decision Making - Lab Data Result diagrams: 07/02/20 20:02 07/02/20 20:02 - EKG Data -: EKG Interpreted by Me EKG shows normal: sinus rhythm, axis, intervals, QRS complexes, ST-T waves Rate: normal - EKG Data Interpretation: no acute changes - Radiology Data Radiology results: report reviewed, image reviewed - Medical Decision Making 30-year-old female presents to ED with chest pain x5 days. Was diagnosed with right-sided PE 3 days ago however was not discharged with pain medication. Patient states she continues to have the same pain that was present initially. Pain is pleuritic sharp in nature. Labs are unremarkable. Vital signs are stable. Patient is given [place] here in the ED and is feeling much better at this time. Patient is comfortable with discharge home. Will discharge with prescription for [place]. Patient reports she has an outpatient appointment later this week for follow-up. Return precautions given. - Differential Diagnosis PE Critical care attestation.: If time is entered above; I have spent that time in minutes in the direct care of this critically ill patient, excluding procedure time. ED Disposition Clinical Impression: Pulmonary embolism Disposition: DC-01 TO HOME OR SELFCARE Is pt being admited?: No Condition: Stable Instructions: Pulmonary Embolism Prescriptions: HYDROcodone/APAP 5-325 [[place] 5/325] 1 each PO Q6HR PRN #10 tablet PRN Reason: Pain Referrals: PRIMARY CARE, [Primary Care Provider] - 3-5 Days Time of Disposition: 22:15
[2020-07-02 22:28] VITALS: BP 124/81
== END 2020-07-02 22:28 | disposition home or self-care (01) ==
LOC: ED 19:47
DX: I26.99 Other pulmonary embolism without acute cor pulmonale (principal); Z88.0 Allergy status to penicillin; Z79.899 Other long term (current) drug therapy; Z98.890 Other specified postprocedural states
CPT/HCPCS: 36415; 71046; 80053; 83735; 83880; 84484; 85025; 85610; 85730; 93005